=== PATIENT | male | born 1955 | race Caucasian/White ===

== ENCOUNTER 2021-08-21 10:39 | Emergency (ER) | payer MEDICARE, OTHER ==
[~2021-08-21] VITALS: Ht 180.3 cm; Wt 113.4 kg
[2021-08-21 11:06] LABS: BASOPHIL 0.4 % (0-2); EOSINOPHIL 1.9 % (0-7); HCT 46.5 % (42.0-52.0); HGB 15.6 g/dl (13.2-18.0); LYMPHOCYTE 30.9 % (15-48); MCH 33.9 pg (25.0-31.0); MCHC 33.5 g/dL (32.0-36.0); MCV 101.1 fL (78.0-100.0); MPV 9.6 fL (6.0-9.5); NEUTROPHIL 57.5 % (41-80); NRBC 0; PLT 226 K/uL (150-400); RDW 13.6 % (11.5-14.0); WBC 7.5 K/uL (4.0-10.5)
[2021-08-21 11:11] LABS: INR 1.01 (0.9-1.2); PROTHROMBIN TIME 12.7 SECONDS (11.8-13.4); PTT 29.6 SECONDS (24.4-34.7)
[2021-08-21 11:20] LABS: ALBUMIN 3.8 g/dL (3.4-5.0); BILIRUBIN - TOTAL 0.5 mg/dL (0.2-1.0); BUN/CREAT RATIO (CALC) 27.2 RATIO; CREATININE 0.81 mg/dL (0.67-1.17); GLOBULIN (CALCULATION) 3.3 g/dL; POTASSIUM 4.1 mmol/L (3.5-5.1); TOTAL PROTEIN 7.1 g/dL (6.4-8.2)
== END 2021-08-21 15:05 | disposition other institution (70) ==
LOC: FER 10:39
PROVIDERS: Emergency Medicine
DX: I20.0 Unstable angina (principal); I21.4 Non-ST elevation (NSTEMI) myocardial infarction; Z20.822 Contact with and (suspected) exposure to COVID-19
CPT/HCPCS: 36415; 71045; 80053; 82553; 84484; 85025; 85379; 85610; 85730; 93005; J1644; U0002